=== PATIENT | male | born 1985 | race Caucasian/White ===

== ENCOUNTER 2019-02-27 23:02 | Emergency (ER) | payer SELFPAY ==
--- NOTE | 2019-02-27 23:15 | EDM.PDOCBH ---
ED HPI GENERAL MEDICAL PROBLEM - General Chief Complaint: Behavioral/Psych Stated Complaint: AMBULANCE-UNKNOWN Time Seen by Provider: 02/27/19 23:09 Source of Information: Reports: Patient, EMS, Police History Limitations: Reports: Intoxication - History of Present Illness INITIAL COMMENTS - FREE TEXT/NARRATIVE: pt intox mumbling about not doing it right. wanted to end his life since he is not happy with it after being told his father who raised him and had treated him good all his life is not his real father. states tried to kill himself by taking claonaz about 4:30 today and drank lots of blackberry quan. bottle showed 37 clonaz 0.5mg missing. PD found suicide note and weapons in appt. EMS state responded to call with male self cutting on forearm and OD clonaz x 37. pt recently released from [facility]. Right Arm Pain Score (Numeric/FACES): 7 - Related Data Allergies Allergy/AdvReac Type Severity Reaction Status Date / Time amoxicillin Allergy Cannot Verified 02/27/19 23:20 Remember Pork/Porcine Containing Allergy Cannot Verified 02/27/19 23:20 Products Remember sulfamethoxazole Allergy Cannot Verified 02/27/19 23:20 [From Bactrim] Remember trimethoprim [From Bactrim] Allergy Cannot Verified 02/27/19 23:20 Remember Home Meds: Home Meds ClonazePAM [KlonoPIN] 0.5 mg PO BEDTIME 02/27/19 [History] Escitalopram [Lexapro] 20 mg PO BID 02/27/19 [History] Insulin Detemir [Levemir] 15 unit SUBCUT DAILY 02/27/19 [History] metFORMIN HCl [Metformin HCl] 1,000 mg PO BID 02/27/19 [History] traZODone HCl [Trazodone HCl] 50 mg PO BEDTIME 02/27/19 [History] ED ROS GENERAL - Review of Systems Review Of Systems: ROS reveals no pertinent complaints other than HPI. ED EXAM, BEHAVIORAL HEALTH - Physical Exam Exam: See Below Exam Limited By: No Limitations General Appearance: Alert, WD/WN, No Apparent Distress, Other (intox co-op) Eye Exam: Bilateral Eye: PERRL (pupils ER @ 4mm) Ears: Hearing Grossly Normal Throat/Mouth: Normal Voice, No Airway Compromise Head: Atraumatic Neck: Non-Tender, Full Range of Motion Respiratory/Chest: No Respiratory Distress Cardiovascular: Regular Rate, Rhythm GI/Abdominal: Soft, Non-Tender Extremities: Other (right forearm multiple lac' toatlling 6", NV wnl, normal ROM.) Neurological: Alert, Normal Cognition, No Motor/Sensory Deficits, Oriented x 3 Psychiatric: Alert, Flat Affect, Tearful Skin Exam: Warm, Dry, Normal color ED Add Procedures - Additional/Other Procedure(s) Procedure(s) (Free Text): 1) 6" wound cleansed with hibicleanse 2) lido 1% local 3) suture with 4 '0' CTS 4) steril dressing applied 5) no known complication COURSE, BEHAVIORAL HEALTH COMP - Course Vital Signs: Last Vital Signs Temp 36.3 C 02/27/19 23:33 Pulse 71 02/27/19 23:33 Resp 15 02/27/19 23:33 BP 111/69 02/27/19 23:33 Pulse Ox 99 02/27/19 23:33 Orders, Labs, Meds: Active Orders 24 hr Category Date Time Status EKG 12 Lead [EKG Documentation Completion] [RC] STAT Care 02/28/19 00:01 Active UA W/MICROSCOPIC [URIN] Routine Lab 02/28/19 00:17 Results Laboratory Tests 02/27/19 02/27/19 02/27/19 Range/Units 23:20 23:20 23:20 WBC 5.8 (5.0-10.0) 10^3/uL RBC 4.40 L (4.6-6.2) 10^6/uL Hgb 13.4 L (14.0-18.0) g/dL Hct 36.8 L (40.0-54.0) % MCV 83.6 (80-100) fL MCH 30.5 (27.0-34.0) pg MCHC 36.4 H (33.0-35.0) g/dL Plt Count 228 (150-450) 10^3/uL Neut % (Auto) 53.1 (42.2-75.2) % Lymph % (Auto) 38.8 (20.5-50.1) % [place] % (Auto) 5.0 (2-8) % Eos % (Auto) 1.9 (1.0-3.0) % Baso % (Auto) 1.2 H (0.0-1.0) % Sodium 138 (135-145) mmol/L Potassium 3.3 L (3.6-5.0) mmol/L Chloride 108 (101-111) mmol/L Carbon Dioxide 19.0 L (21.0-31.0) mmol/L Anion Gap 14.3 BUN 10 (7-18) mg/dL Creatinine 0.8 (0.6-1.3) mg/dL Est Cr Clr Drug Dosing 132.56 mL/min Estimated GFR (MDRD) > 60 BUN/Creatinine Ratio 12.50 Glucose 224 H (74-105) mg/dL Calcium 8.4 (8.4-10.2) mg/dl Total Bilirubin 0.8 (0.2-1.0) mg/dL AST 29 (10-42) IU/L ALT 26 (10-60) IU/L Alkaline Phosphatase 37 L (42-121) IU/L Total Protein 6.1 L (6.7-8.2) g/dl Albumin 3.8 (3.2-5.5) g/dl Globulin 2.3 Albumin/Globulin Ratio 1.65 Urine Color (YELLOW) Urine Appearance (CLEAR) Urine pH (5.0-9.0) Ur Specific [place] (1.005-1.030) Urine Protein (NEGATIVE) Urine Glucose (UA) (NEGATIVE) Urine Ketones (NEGATIVE) Urine Occult Blood (NEGATIVE) Urine Nitrite (NEGATIVE) Urine Bilirubin (NEGATIVE) Urine Urobilinogen (0.2-1.0) mg/dL Ur Leukocyte Esterase (NEGATIVE) Salicylates < 4 mg/dL Urine Opiates Screen (NEGATIVE) Ur Oxycodone Screen (NEGATIVE) Urine Methadone Screen (NEGATIVE) Acetaminophen < 10 ug/mL Ur Barbiturates Screen (NEGATIVE) U Tricyclic Antidepress (NEGATIVE) Ur Phencyclidine Scrn (NEGATIVE) Ur Amphetamine Screen (NEGATIVE) U Methamphetamines Scrn (NEGATIVE) Urine MDMA Screen (NEGATIVE) U Benzodiazepines Scrn (NEGATIVE) Urine Cocaine Screen (NEGATIVE) U Marijuana (THC) Screen (NEGATIVE) Ethyl Alcohol 146 mg/dL 02/28/19 02/28/19 Range/Units 00:17 00:17 WBC (5.0-10.0) 10^3/uL RBC (4.6-6.2) 10^6/uL Hgb (14.0-18.0) g/dL Hct (40.0-54.0) % MCV (80-100) fL MCH (27.0-34.0) pg MCHC (33.0-35.0) g/dL Plt Count (150-450) 10^3/uL Neut % (Auto) (42.2-75.2) % Lymph % (Auto) (20.5-50.1) % [place] % (Auto) (2-8) % Eos % (Auto) (1.0-3.0) % Baso % (Auto) (0.0-1.0) % Sodium (135-145) mmol/L Potassium (3.6-5.0) mmol/L Chloride (101-111) mmol/L Carbon Dioxide (21.0-31.0) mmol/L Anion Gap BUN (7-18) mg/dL Creatinine (0.6-1.3) mg/dL Est Cr Clr Drug Dosing mL/min Estimated GFR (MDRD) BUN/Creatinine Ratio Glucose (74-105) mg/dL Calcium (8.4-10.2) mg/dl Total Bilirubin (0.2-1.0) mg/dL AST (10-42) IU/L ALT (10-60) IU/L Alkaline Phosphatase (42-121) IU/L Total Protein (6.7-8.2) g/dl Albumin (3.2-5.5) g/dl Globulin Albumin/Globulin Ratio Urine Color Yellow (YELLOW) Urine Appearance Clear (CLEAR) Urine pH 6.0 (5.0-9.0) Ur Specific [place] <= 1.005 (1.005-1.030) Urine Protein Negative (NEGATIVE) Urine Glucose (UA) 250 H (NEGATIVE) Urine Ketones Negative (NEGATIVE) Urine Occult Blood Trace-intact H (NEGATIVE) Urine Nitrite Negative (NEGATIVE) Urine Bilirubin Negative (NEGATIVE) Urine Urobilinogen 0.2 (0.2-1.0) mg/dL Ur Leukocyte Esterase Negative (NEGATIVE) Salicylates mg/dL Urine Opiates Screen Negative (NEGATIVE) Ur Oxycodone Screen Negative (NEGATIVE) Urine Methadone Screen Negative (NEGATIVE) Acetaminophen ug/mL Ur Barbiturates Screen Negative (NEGATIVE) U Tricyclic Antidepress Negative (NEGATIVE) Ur Phencyclidine Scrn Negative (NEGATIVE) Ur Amphetamine Screen Negative (NEGATIVE) U Methamphetamines Scrn Negative (NEGATIVE) Urine MDMA Screen Negative (NEGATIVE) U Benzodiazepines Scrn Negative (NEGATIVE) Urine Cocaine Screen Negative (NEGATIVE) U Marijuana (THC) Screen Negative (NEGATIVE) Ethyl Alcohol mg/dL Medications Discontinued Medications Generic Name Dose Route Start Last Admin Trade Name Man PRN Reason Stop Dose Admin Bacitracin 1 dose 02/27/19 23:40 02/27/19 23:44 Bacitracin Oint 1 Gm TOP 02/27/19 23:41 1 dose ONETIME ONE Administration Lidocaine HCl 30 ml 02/27/19 23:09 02/27/19 23:30 Xylocaine-Mpf 1% INJECT 02/27/19 23:10 30 ml ONETIME ONE Administration Re-Assessment/Re-Exam: case discussed wiht Dr Davis @ who kindly accepted pt Departure - Departure Time of Disposition: 01:09 Disposition: DC/Tfer to Acute Hospital 02 Condition: Fair Clinical Impression: Suicidal behavior with attempted self-injury Suicidal overdose Qualifiers: Encounter type: initial encounter Qualified Code(s): T50.902A - Poisoning by unspecified drugs, medicaments and biological substances, intentional self-harm , initial encounter Laceration of arm Qualifiers: Encounter type: initial encounter Laterality: right Qualified Code(s): S41.111A - Laceration without foreign body of right upper arm, initial encounter Alcohol intoxication Qualifiers: Complication of substance-induced condition: uncomplicated Qualified Code(s): F10.920 - Alcohol use, unspecified with intoxication, uncomplicated - Discharge Information - My Orders Last 24 Hours: My Active Orders 02/28/19 00:01 EKG 12 Lead [EKG Documentation Completion] [RC] STAT 02/28/19 00:17 UA W/MICROSCOPIC [URIN] Routine - Assessment/Plan Last 24 Hours: My Active Orders 02/28/19 00:01 EKG 12 Lead [EKG Documentation Completion] [RC] STAT 02/28/19 00:17 UA W/MICROSCOPIC [URIN] Routine
[2019-02-27] MEDS: Lidocaine 1% 30 ML SDV INJECT ONE (23:30)
[2019-02-27 23:42] LABS: ANION GAP 14.3; CHLORIDE,CL 108 mmol/L (101-111); SODIUM,NA 138 mmol/L (135-145)
[2019-02-27] MEDS: Bacitracin Oint 1 GM U/D Packet TOP ONE (23:44)
[2019-02-28 00:27] LABS: ACETAMINOPHEN < 10 ug/mL
== END 2019-02-28 01:30 ==
LOC: DL.ED 23:02 → DL.MS 02-28 00:58 → UNDOADMOB 02-28 00:58
DX: T42.4X2A Poisoning by benzodiazepines, intentional self-harm, initial encounter (principal); S51.812A Laceration without foreign body of left forearm, initial encounter; F10.920 Alcohol use, unspecified with intoxication, uncomplicated; Z88.8 Allergy status to other drugs, medicaments and biological substances; Z88.1 Allergy status to other antibiotic agents; Z79.899 Other long term (current) drug therapy; X78.9XXA Intentional self-harm by unspecified sharp object, initial encounter; Y90.6 Blood alcohol level of 120-199 mg/100 ml; Z91.018 Allergy to other foods; Z79.4 Long term (current) use of insulin
CPT/HCPCS: 12005; 36415; 80053; 80305; 81001; 85025; 93005; 99285; G0480; J2001; 12004